=== PATIENT | female | born 2000 | race African-American/Black ===

== ENCOUNTER → 2021-02-02 | Outpatient (CLI) | payer MEDICAID ==
[~2021-02-02] MED LIST: CYCL10TA2 PO; GADOTERATE 7.5 MMOL/15ML VIAL. IVP ONE; SUMA50TA3 PO
--- NOTE | 2021-02-02 13:07 | KCIC ---
MRI of the Brain without and with Contrast 02/02/2021 Clinical History: Right-sided facial numbness. Severe headaches. Visual changes.. Technique: Unenhanced T1-weighted and FLAIR sagittal and axial and T2-weighted, gradient echo and dif fusion-weighted axial images of the brain were obtained. After the intravenous administration of 12 c c of CLARISCAN, enhanced T1-weighted axial and coronal images of the brain were obtained. Findings: The ventricles and sulci are within normal limits in size and configuration. No area of sig nificant abnormal signal intensity is seen involving the brain parenchyma. There is no MRI evidence o f acute ischemia/infarction. No extra-axial fluid collection is seen. No area of abnormal contrast en hancement is noted. Mild mucosal thickening in seen scattered throughout the paranasal sinuses. Normal flow voids are see n within the major vascular structures surrounding the brain parenchyma. IMPRESSION: 1. Negative MRI of the brain. 2. Mild paranasal sinus disease. Electronically signed by: Giovanni Cantrell MD (02/02/2021 1:04 PM) [id number]
== END ==
LOC: KCIC MRI 09:17
PROVIDERS: ATTEND Nurse Practitioner Gerontology
DX: R51.9 Headache, unspecified (principal); H53.9 Unspecified visual disturbance; R20.0 Anesthesia of skin
CPT/HCPCS: 70553; A9575